=== PATIENT | female | born 1990 | race African-American/Black ===

== ENCOUNTER → 2019-05-16 | Day surgery (SDC) | payer OTHER ==
--- NOTE | 2019-05-18 16:46 | PATH ---
Surgical Pathology Report Patient Name: KARLA VELEZ [facility]. Rec. #: [id number] /Age/Gender: 1990 (Age: 29) / F Account: [id number] Location: [facility] Taken: 05/16/2019 Received: 05/16/2019 Reported: 05/18/2019 Physicians: Bradley Ruth CNM Specimen(s) Received BREAST, RIGHT, 2:00, 8 CM FN, CORE BIOPSY Clinical History Rule out lipoma, PAS Final Diagnosis BREAST, RIGHT, 2:00, 8 CM FN, CORE BIOPSY: BENIGN PREDOMINANTLY FATTY BREAST PARENCHYMA WITH NODULAR FIBROSIS, CHRONIC INFLAMMATION, HISTIOCYTIC INFILTRATE INCLUDING FEW HEMOSIDERIN LADEN MACROPHAGES, AND FOCAL FAT NECROSIS. Electronically Signed Sharee Yan M.D. Gross Description Received in formalin labeled "right breast biopsy 2:00, 8 cmfn," is a 1.7 x 1.2 x 0.2 cm aggregate of multiple gutierres-yellow, irregular to cylindrical portions of fibroadipose tissue. The formalin is filtered and the specimen is entirely submitted in one cassette. Time to formalin fixation: 2 minutes Total formalin fixation time: Approximately 30 hours. /05/17/2019 saudi05/17/2019
== END | disposition home or self-care (01) ==
LOC: FRADUS-SUR 10:58
PROVIDERS: ATTEND Midwife
PROC: 0H9T3ZX Drainage of Right Breast, Percutaneous Approach, Diagnostic (ICD-10-PCS; principal; 2019-05-16)
DX: D48.61 Neoplasm of uncertain behavior of right breast (principal); D24.1 Benign neoplasm of right breast
CPT/HCPCS: 19083; 87899; A4648